=== PATIENT | male | born 1980 | race African-American/Black ===

== ENCOUNTER 2016-02-24 10:26 | Emergency (ER) | payer OTHER ==
[2016-02-24] MEDS ORDERED: ONDANSETRON 4MG/2ML VIAL (J2405) As Ordered ONE (10:57)
[2016-02-24] MEDS ORDERED: KETOROLAC 30 MG/ML VIAL (J1885) As Ordered ONE (10:57)
[2016-02-24] MEDS ORDERED: GASTROGRAFIN SOLUTION 30ML (Q9963) As Ordered ONE (10:58)
[2016-02-24] MEDS ORDERED: ISOVUE-370 76% 100ML VIAL (Q9967) As Ordered ONE (11:17)
[2016-02-24 11:21] LABS: ALBUMIN/GLOBULIN RATIO 1.18 (1.00-1.93); ALKALINE PHOSPHATASE 87 U/L (45-117); ALT/SGPT 35 U/L (12-78); AMYLASE 53 U/L (25-115); ANION GAP 10 MEQ/L (8-16); AST/SGOT 17 U/L (15-37); BILIRUBIN,DIRECT 0.2 MG/DL (0.0-0.2); BILIRUBIN,TOTAL 0.6 MG/DL (0.2-1.0); BLOOD UREA NITROGEN 17 MG/DL (7-18); CALCIUM LEVEL 8.8 MG/DL (8.5-10.1); CARBON DIOXIDE LEVEL 27 MEQ/L (21-32); CHLORIDE LEVEL 107 MEQ/L (98-107); CREATININE FOR GFR 1.04 MG/DL (0.70-1.30); GLOMERULAR FILTRATION RATE > 60.0 (>60); GLUCOSE, FASTING 90 MG/DL (70-105); POTASSIUM SERUM 3.5 MEQ/L (3.5-5.1); SODIUM LEVEL 144 MEQ/L (136-145); TOTAL PROTEIN 7.4 GM/DL (6.4-8.2)
[2016-02-24 11:27] LABS: BASO % 0.5 % (0.0-1.0); EOS # 0.1 K/mm3 (0.0-0.50); EOS % 1.9 % (0.0-3.0); LARGE UNSTAINED CELL # 0.1 K/mm3 (0.0-0.4); LARGE UNSTAINED CELL % 3.8 % (0.0-4.0); LYMPH % 54.9 % (24.0-44.0); MEAN CORPUSCULAR HEMOGLOBIN 31.5 pg (27.0-33.0); MEAN CORPUSCULAR HGB CONC 36.2 g/dl (32.0-36.5); MEAN CORPUSCULAR VOLUME 86.9 fl (80.0-96.0); MONO # 0.3 K/mm3 (0.0-0.8); MONO % 7.4 % (0.0-5.0); NEUTROPHILS # 1.2 K/mm3 (1.8-7.7); NEUTROPHILS % 31.6 % (36.0-66.0); PLATELET COUNT, AUTOMATED 161 k/mm3 (150-450); RED CELL DISTRIBUTION WIDTH 12.1 % (11.5-14.5); WHITE BLOOD COUNT 3.7 K/mm3 (4.0-10.0)
--- NOTE | 2016-02-24 13:51 | EDDOCDS ---
Physician Documentation [facility] Name: Miguel Gould Age: 35 yrs Sex: Male : 1980 Arrival Date: 02/24/2016 Time: 10:26 Bed I7 Private MD: Unknown, Family Dr Disposition: 02/24/16 13:36 Discharged to Home/Self Care. Impression: Nausea, Lower abdominal pain, unspecified - RLQ. - Condition is Stable. - Discharge Instructions: Abdominal Pain, Adult, Nausea, Adult. - Prescriptions for Bentyl 20 mg Oral Tablet - take 1 tablet by ORAL route every 6 hours As needed; 20 tablet. ZOFRAN ODT 4 mg Oral - dissolve 1 tablet by ORAL route 3-4 times daily As needed do not chew, do not swallow whole; 20 tablet. - Medication Reconciliation, Local Pharmacy Hours form. - Follow up: Emergency Department; When: As needed; Reason: Worsening of conditions. Follow up: Private Physician; When: 2 - 3 days; Reason: Wound/Symptom Recheck, Recheck today's complaints, Continuance of care. - Problem is new. - Symptoms have improved. Historical: - Allergies: PENICILLINS; - Home Meds: 1. none - PMHx: Hepatitis C; - PSHx: Cholecystectomy; - Family history: Not pertinent. - Social history: Smoking status: Patient states was never smoker of tobacco. No barriers to communication noted, The patient speaks fluent Turkmen. - : The pt / caregiver states he / she is not on anticoagulants. Home medication list is obtained from the patient. - Exposure Risk Screening:: None identified. Vital Signs: 02/23 10:28 BP 156 / 73; Pulse 86; Resp 18; Temp 96.1(O); Pulse Ox 99% on R/A; Weight 83.46 kg / elp 184 lbs (R); Height 5 ft. 10 in. (177.80 cm) (R); Pain 3/10; 13:36 BP 123 / 61; Pulse 74; Resp 16; Temp 98.3; Pulse Ox 99% on R/A; Pain 3/10; jmk 10:28 Body Mass Index 26.40 (83.46 kg, 177.80 cm) elp MDM: 10:45 NS 0.9% 1000 ml IV at bolus once ordered. dt4 10:45 Ondansetron 4 mg IVP once ordered. dt4 10:45 ketorolac 30 mg IVP once ordered. dt4 10:45 IV Saline Lock ordered. dt4 10:46 Amylase Ordered. EDMS 10:46 Basic Metabolic Profile Ordered. EDMS 10:46 CBC with Diff Ordered. EDMS 10:46 Lipase Ordered. EDMS 10:46 Liver Profile Ordered. EDMS 10:46 Urinalysis Ordered. EDMS 10:46 CRP Ordered. EDMS 10:46 Urine Culture Ordered. EDMS 10:46 CT ABD & PELVIS: IV and Oral Contrast Ordered. EDMS 10:46 NOTHING BY MOUTH+DIET ordered. EDMS 11:09 Financial registration complete. lg 11:12 Diatrizoate Meglumine & Sodium Liquid 10 ml PO once; mix in 290cc of water ordered. ead 11:12 Diatrizoate Meglumine & Sodium Liquid 10 ml PO once; mix in 290cc of water ordered. ead Administered Medications: 11:00 Drug: Ondansetron 4 mg [ondansetron HCl 2 mg/mL intravenous solution (2 mL)] Route: ead IVP; Site: left hand; 11:02 Drug: ketorolac 30 mg [ketorolac 30 mg/mL (1 mL) injection solution (1 mL)] Route: IVP; ead Site: left hand; 11:05 Drug: NS 0.9% 1000 ml Route: IV; Rate: bolus; Site: left antecubital; [facility] 11:10 Drug: Diatrizoate Meglumine & Sodium 10 ml [diatrizoate meglumine and diat.sodium 66 ead %-10 % oral solution (10 mL)] Route: PO; 11:41 Drug: Diatrizoate Meglumine & Sodium 10 ml [diatrizoate meglumine and diat.sodium 66 ead %-10 % oral solution (10 mL)] Route: PO; Signatures: Dispatcher [employer] EDMS Mitchell Angeles,RN RN Leonie Santos, Oskar Braga lg, RN RN mlb1 Edda Su RN RN Coni Pierce, MORENO PACasie dt4 MTDD
--- NOTE | 2016-02-24 13:51 | EDDOCDS ---
Nurse's Notes [facility] Name: Miguel Gould Age: 35 yrs Sex: Male : 1980 Arrival Date: 02/24/2016 Time: 10:26 Bed I7 Private MD: Unknown, Family Dr Diagnosis: Nausea;Lower abdominal pain, unspecified-RLQ Presentation: 02/23 10:32 Presenting complaint: Patient states: RLQ pain began a week ago with nausea and mlb1 diarrhea. Risk factors: the patient reports not having a history of previous torsion. Adult Sepsis Screening: The patient does not have new or worsening altered mentation. Patient's respiratory rate is less than 22. Systolic blood pressure is greater than 100. Patient has a qSOFA score of 0- Negative Sepsis Screen. Suicide/Homicide risk assessment- the patient denies having any suicidal and/or homicidal ideations and does not present with any other emotional, behavioral or mental health complaints. Status: Patient is not a health services manager or dependent. Transition of care: patient was not received from another setting of care. 10:32 Acuity: ASHISH Level 3 mlb1 10:32 Method Of Arrival: Walkin/Carried/Asstd mlb1 Triage Assessment: 13:49 Pain: Pain currently is 3 out of 10 on a pain scale. Pt Declines HIV testing. GI: jmk Abdomen is flat, non- distended Bowel sounds present X 4 quads. Historical: - Allergies: PENICILLINS; - Home Meds: 1. none - PMHx: Hepatitis C; - PSHx: Cholecystectomy; - Family history: Not pertinent. - Social history: Smoking status: Patient states was never smoker of tobacco. No barriers to communication noted, The patient speaks fluent Faroese. - : The pt / caregiver states he / she is not on anticoagulants. Home medication list is obtained from the patient. - Exposure Risk Screening:: None identified. Screenin:47 Screening information is obtained from the patient. Fall risk: No risks identified. jmk Assistance ADL's: requires no assistance with activities of daily living. Abuse/DV Screen: The patient / caregiver reports he/she is: not in a situation that causes fear, pain or injury. Nutritional screening: No deficits noted. Advance Directives: Currently, there is no health care proxy. There is no active DNR order. There is no living will. There is no Power of Hone Operator. Advance directive information has not previously been placed in an [facility] medical record. Further advance directive information is declined. home support is adequate. Assessment: 10:38 General: Appears in no apparent distress, skin warm and dry color satisfactory. Moist jmk pink oral mucosa. Indicates discomfort to right lower abdomen. Denies rebound tenderness. Bowel sounds present x 4. ambulates with brisk upright gait and readily accommodates position changes. GI: Abdomen is flat, non- distended Bowel sounds present X 4 quads. Abd is soft X 4 quads Abd is tender to palpation in right lower quadrant. 11:30 General: Appears in no apparent distress, comfortable, Behavior is appropriate for age, ead cooperative, pleasant. Neurological: No deficits noted. Respiratory: Airway is patent Respiratory effort is even, unlabored. Derm: Skin is dry, Skin is normal, Skin temperature is warm. 12:30 General: Appears in no apparent distress, comfortable, Behavior is appropriate for age, ead cooperative, pt returned from CT, awaiting results. Security officers maintain at bedside with pt.. Vital Signs: 10:28 BP 156 / 73; Pulse 86; Resp 18; Temp 96.1(O); Pulse Ox 99% on R/A; Weight 83.46 kg (R); elp Height 5 ft. 10 in. (177.80 cm) (R); Pain 3/10; 13:36 BP 123 / 61; Pulse 74; Resp 16; Temp 98.3; Pulse Ox 99% on R/A; Pain 3/10; jmk 10:28 Body Mass Index 26.40 (83.46 kg, 177.80 cm) [facility] Vitals: 10:28 Log In Time: February 24, 2016 at 10:25. [facility] ED Course: 10:28 Patient visited by Sandra Nelson PCA. elp 10:28 Unknown, Family is Private Physician. elp 10:28 Patient moved to Waiting elp 10:29 Patient visited by Sandra Nelson PCA. elp 10:31 Patient moved to I7 elp 10:32 Patient visited by Oskar Richardson RN. mlb1 10:35 Triage Initiated mlb1 10:36 Coni Byrnes PA-C is PSYCHIATRICP. dt4 10:36 Patricio Yee MD is Attending Physician. dt4 10:36 Patient visited by Coni Byrnes PA-C. dt4 10:38 Patient visited by Oskar Richardson RN. mlb1 10:50 Inserted saline lock: 20 gauge in left hand. jmk 10:56 CRP Sent. jmk 10:56 Amylase Sent. jmk 10:56 Basic Metabolic Profile Sent. jmk 10:57 CBC with Diff Sent. jmk 10:57 Lipase Sent. jmk 10:57 Liver Profile Sent. jmk 10:57 Urinalysis Sent. jmk 10:57 Urine Culture Sent. jmk 11:11 Patient visited by Edda Su,RN. ead 12:26 Patient visited by Edda Su,MAHI. ead 13:47 The patient / caregiver is instructed regarding the plan of care and ED course. jmk 13:48 Discontinued lock intact, bleeding controlled, pressure dressing applied, No jmk redness/swelling at site. No procedures done that require assistance. Administered Medications: 11:00 Drug: Ondansetron 4 mg [ondansetron HCl 2 mg/mL intravenous solution (2 mL)] Route: ead IVP; Site: left hand; 11:02 Drug: ketorolac 30 mg [ketorolac 30 mg/mL (1 mL) injection solution (1 mL)] Route: IVP; ead Site: left hand; 11:05 Drug: NS 0.9% 1000 ml Route: IV; Rate: bolus; Site: left antecubital; jmk 11:10 Drug: Diatrizoate Meglumine & Sodium 10 ml [diatrizoate meglumine and diat.sodium 66 ead %-10 % oral solution (10 mL)] Route: PO; 11:41 Drug: Diatrizoate Meglumine & Sodium 10 ml [diatrizoate meglumine and diat.sodium 66 ead %-10 % oral solution (10 mL)] Route: PO; Order Results: Lab Order: Amylase; SPEC'M 02/24/16 10:54 Test: AMYLASE; Value: 53; Range: 25-115; Units: U/L; Status: F Lab Order: Basic Metabolic Profile; SPEC'M 02/24/16 10:54 Test: GLUCOSE, FASTING; Value: 90; Range: 70-105; Units: MG/DL; Status: F Test: BLOOD UREA NITROGEN; Value: 17; Range: 7-18; Units: MG/DL; Status: F Test: CREATININE FOR GFR; Value: 1.04; Range: 0.70-1.30; Units: MG/DL; Status: F Test: GLOMERULAR FILTRATION RATE; Value: > 60.0; Range: >60; Status: F Test: SODIUM LEVEL; Value: 144; Range: 136-145; Units: MEQ/L; Status: F Test: POTASSIUM SERUM; Value: 3.5; Range: 3.5-5.1; Units: MEQ/L; Status: F Test: CHLORIDE LEVEL; Value: 107; Range: 98-107; Units: MEQ/L; Status: F Test: CARBON DIOXIDE LEVEL; Value: 27; Range: 21-32; Units: MEQ/L; Status: F Test: ANION GAP; Value: 10; Range: 8-16; Units: MEQ/L; Status: F Test: CALCIUM LEVEL; Value: 8.8; Range: 8.5-10.1; Units: MG/DL; Status: F Test Note: ; Units are mL/min/1.73 m2 Chronic Kidney Disease Staging per NKF: Stage I & II GFR >=60 Normal to Mildly Decreased Stage III GFR 30-59 Moderately Decreased Stage IV GFR 15-29 Severely Decreased Stage V GFR <15 Very Little GFR Left ESRD GFR <15 on TEACHING PASTOR Lab Order: CBC with Diff; SPEC'M 02/24/16 10:54 Test: WHITE BLOOD COUNT; Value: 3.7; Range: 4.0-10.0; Abnormal: Below low normal; Units: K/mm3; Status: F Test: RED BLOOD COUNT; Value: 4.18; Range: 4.30-6.10; Abnormal: Below low normal; Units: M/mm3; Status: F Test: HEMOGLOBIN; Value: 13.1; Range: 14.0-18.0; Abnormal: Below low normal; Units: g/dl; Status: F Test: HEMATOCRIT; Value: 36.3; Range: 42.0-52.0; Abnormal: Below low normal; Units: %; Status: F Test: MEAN CORPUSCULAR VOLUME; Value: 86.9; Range: 80.0-96.0; Units: fl; Status: F Test: MEAN CORPUSCULAR HEMOGLOBIN; Value: 31.5; Range: 27.0-33.0; Units: pg; Status: F Test: MEAN CORPUSCULAR HGB CONC; Value: 36.2; Range: 32.0-36.5; Units: g/dl; Status: F Test: RED CELL DISTRIBUTION WIDTH; Value: 12.1; Range: 11.5-14.5; Units: %; Status: F Test: PLATELET COUNT, AUTOMATED; Value: 161; Range: 150-450; Units: k/mm3; Status: F Test: NEUTROPHILS %; Value: 31.6; Range: 36.0-66.0; Abnormal: Below low normal; Units: %; Status: F Test: LYMPH %; Value: 54.9; Range: 24.0-44.0; Abnormal: Above high normal; Units: %; Status: F Test: MONO %; Value: 7.4; Range: 0.0-5.0; Abnormal: Above high normal; Units: %; Status: F Test: EOS %; Value: 1.9; Range: 0.0-3.0; Units: %; Status: F Test: BASO %; Value: 0.5; Range: 0.0-1.0; Units: %; Status: F Test: LARGE UNSTAINED CELL %; Value: 3.8; Range: 0.0-4.0; Units: %; Status: F Test: NEUTROPHILS #; Value: 1.2; Range: 1.8-7.7; Abnormal: Below low normal; Units: K/mm3; Status: F Test: LYMPH #; Value: 2.0; Range: 1.5-4.5; Units: K/mm3; Status: F Test: MONO #; Value: 0.3; Range: 0.0-0.8; Units: K/mm3; Status: F Test: EOS #; Value: 0.1; Range: 0.0-0.50; Units: K/mm3; Status: F Test: BASO #; Value: 0.0; Range: 0.0-0.2; Units: K/mm3; Status: F Test: LARGE UNSTAINED CELL #; Value: 0.1; Range: 0.0-0.4; Units: K/mm3; Status: F Lab Order: Lipase; SPEC'M 02/24/16 10:54 Test: LIPASE; Value: 140; Range: 73-393; Units: U/L; Status: F Lab Order: Liver Profile; [facility] 02/24/16 10:54 Test: AST/SGOT; Value: 17; Range: 15-37; Units: U/L; Status: F Test: ALT/SGPT; Value: 35; Range: 12-78; Units: U/L; Status: F Test: ALKALINE PHOSPHATASE; Value: 87; Range: 45-117; Units: U/L; Status: F Test: BILIRUBIN,TOTAL; Value: 0.6; Range: 0.2-1.0; Units: MG/DL; Status: F Test: BILIRUBIN,DIRECT; Value: 0.2; Range: 0.0-0.2; Units: MG/DL; Status: F Test: TOTAL PROTEIN; Value: 7.4; Range: 6.4-8.2; Units: GM/DL; Status: F Test: ALBUMIN; Value: 4.0; Range: 3.2-5.2; Units: GM/DL; Status: F Test: ALBUMIN/GLOBULIN RATIO; Value: 1.18; Range: 1.00-1.93; Status: F Lab Order: Urinalysis; [facility] 02/24/16 10:54 Test: APPEARANCE, URINE; Value: CLEAR; Range: CLEAR; Status: F Test: COLOR, URINE; Value: YELLOW; Range: YELLOW; Status: F Test: PH,URINE; Value: 5.0; Range: 5.0-9.0; Units: UNITS; Status: F Test: SPECIFIC GRAVITY URINE AUTO; Value: 1.020; Range: 1.002-1.035; Status: F Test: PROTEIN, URINE AUTO; Value: NEGATIVE; Range: NEGATIVE; Units: mg/dL; Status: F Test: GLUCOSE, URINE (UA) AUTO; Value: NEGATIVE; Range: NEGATIVE; Units: mg/dL; Status: F Test: KETONE, URINE AUTO; Value: NEGATIVE; Range: NEGATIVE; Units: mg/dL; Status: F Test: UROBILINOGEN, URINE AUTO; Value: 0.2; Range: 0.0-2.0; Units: mg/dL; Status: F Test: BILIRUBIN, URINE AUTO; Value: NEGATIVE; Range: NEGATIVE; Status: F Test: NITRITE, URINE AUTO; Value: NEGATIVE; Range: NEGATIVE; Status: F Test: LEUKOCYTE ESTERASE, URINE AUTO; Value: NEGATIVE; Range: NEGATIVE; Status: F Test: BLOOD, URINE BLOOD; Value: NEGATIVE; Range: NEGATIVE; Status: F Test: WBC, URINE AUTO; Value: 2; Range: 0-3; Units: /HPF; Status: F Test: RBC, URINE AUTO; Value: 1; Range: 0-3; Units: /HPF; Status: F Test: BACTERIA, URINE AUTO; Value: NEGATIVE; Range: NEGATIVE; Status: F Test: SQUAMOUS EPITHELIAL CELL UR AU; Value: 0; Range: 0-6; Units: /HPF; Status: F Test: MUCUS, URINE; Value: SMALL; Range: NEGATIVE; Status: F Test: HYALINE CAST, URINE AUTO; Value: 0; Range: 0-1; Units: /LPF; Status: F Lab Order: CRP; SPEC'M 02/24/16 10:54 Test: C REACTIVE PROTEIN QUANTITATIV; Value: < 0.30; Range: 0.00-0.30; Units: MG/DL; Status: F Outcome: 13:36 Discharge ordered by Provider. dt4 13:48 Discharge Assessment: Patient awake, alert and oriented x 3. No cognitive and/or jmk functional deficits noted. Patient verbalized understanding of disposition instructions. patient administered narcotics - no. The following High Risk Discharge criteria are identified: None. Discharged to home ambulatory. Condition: good. Discharge instructions given to patient, Instructed on discharge instructions, follow up and referral plans. medication usage, Demonstrated understanding of instructions, medications, Pt was receptive of discharge instructions/ teaching. Prescriptions given X 2. CT Study completed. Property :Personal belongings accompany Pt. 13:50 Patient left the ED. [facility] Signatures: Mitchell AngelesRN RN Oskar Jara RN RN Sandra Sigala, Edda Corrigan RN RN ead Tschudi, Diane, PA-Yoshi PA-C dt4 MTDD
--- NOTE | 2016-02-24 13:58 | REP ---
CT ABDOMEN AND PELVIS WITH IV AND ORAL CONTRAST: 02/24/2016 INDICATION: Appendicitis. COMPARISON: None. TECHNIQUE: After drinking two cups of oral contrast, each containing 10 mL Gastrografin in 290 mL water, 100 mL Isovue 370 mg/mL IV was injected intravenously. FINDINGS: Minimal dependent atelectasis is present in the lung bases bilaterally. The liver is without focal lesion. Subtle focal area of fatty infiltration is seen in the medial segment left lobe of the liver adjacent to the ligamentum teres. There is a small calcified granuloma within the posterior segment right lob of the liver. The spleen, pancreas, are normal. There has been a prior cholecystectomy. There is no biliary dilatation. The adrenal glands and kidneys are normal without hydronephrosis or obstructing ureteral calculi bilaterally. The stomach and small bowel are within normal limits. Mild mural thickening seen in the terminal ileum only. The terminal ileum is normal. The appendix is without inflammation. The abdominal aorta is of normal course and caliber. The bladder is contracted. The prostate is not enlarged. There is moderate generalized diffuse retained colonic stools. Small umbilical hernia of 19 mm transverse dimension noted containing omental fat only. There is no free air or ascites. IMPRESSION: 1. Appendix is visualized without inflammation or evidence of appendicitis. 2. Prior cholecystectomy. 3. 19 mm umbilical hernia containing omental fat only. 4. Moderate diffuse retained colonic stool. 5. Mild mural thickening is seen is seen in the terminal ileum only, a nonspecific finding yet can be seen with inflammatory bowel disease or underdistention. MTDD
--- NOTE | 2016-02-26 14:51 | EDDOCDS ---
Physician Documentation [facility] Name: Miguel Gould Age: 35 yrs Sex: Male : 1980 Arrival Date: 02/24/2016 Time: 10:26 Bed I7 Private MD: Unknown, Family Dr Disposition: 02/24/16 13:36 Discharged to Home/Self Care. Impression: Nausea, Lower abdominal pain, unspecified - RLQ. - Condition is Stable. - Discharge Instructions: Abdominal Pain, Adult, Nausea, Adult. - Prescriptions for Bentyl 20 mg Oral Tablet - take 1 tablet by ORAL route every 6 hours As needed; 20 tablet. ZOFRAN ODT 4 mg Oral - dissolve 1 tablet by ORAL route 3-4 times daily As needed do not chew, do not swallow whole; 20 tablet. - Medication Reconciliation, Local Pharmacy Hours form. - Follow up: Emergency Department; When: As needed; Reason: Worsening of conditions. Follow up: Private Physician; When: 2 - 3 days; Reason: Wound/Symptom Recheck, Recheck today's complaints, Continuance of care. - Problem is new. - Symptoms have improved. Historical: - Allergies: PENICILLINS; - Home Meds: 1. none - PMHx: Hepatitis C; - PSHx: Cholecystectomy; - Family history: Not pertinent. - Social history: Smoking status: Patient states was never smoker of tobacco. No barriers to communication noted, The patient speaks fluent Lao. - : The pt / caregiver states he / she is not on anticoagulants. Home medication list is obtained from the patient. - Exposure Risk Screening:: None identified. Vital Signs: 02/23 10:28 BP 156 / 73; Pulse 86; Resp 18; Temp 96.1(O); Pulse Ox 99% on R/A; Weight 83.46 kg / elp 184 lbs (R); Height 5 ft. 10 in. (177.80 cm) (R); Pain 3/10; 13:36 BP 123 / 61; Pulse 74; Resp 16; Temp 98.3; Pulse Ox 99% on R/A; Pain 3/10; jmk 10:28 Body Mass Index 26.40 (83.46 kg, 177.80 cm) elp MDM: 10:45 NS 0.9% 1000 ml IV at bolus once ordered. dt4 10:45 Ondansetron 4 mg IVP once ordered. dt4 10:45 ketorolac 30 mg IVP once ordered. dt4 10:45 IV Saline Lock ordered. dt4 10:46 Amylase Ordered. EDMS 10:46 Basic Metabolic Profile Ordered. EDMS 10:46 CBC with Diff Ordered. EDMS 10:46 Lipase Ordered. EDMS 10:46 Liver Profile Ordered. EDMS 10:46 Urinalysis Ordered. EDMS 10:46 CRP Ordered. EDMS 10:46 Urine Culture Ordered. EDMS 10:46 CT ABD & PELVIS: IV and Oral Contrast Ordered. EDMS 10:46 NOTHING BY MOUTH+DIET ordered. EDMS 11:09 Financial registration complete. lg 11:12 Diatrizoate Meglumine & Sodium Liquid 10 ml PO once; mix in 290cc of water ordered. ead 11:12 Diatrizoate Meglumine & Sodium Liquid 10 ml PO once; mix in 290cc of water ordered. ead 14:16 [facility] Payment Agreement was scanned into [employer] and attached to record. lg 15:15 T-Sheet-- Draft Copy was scanned into [employer] and attached to record. gb 15:15 Radiology Report was scanned into [employer] and attached to record. gb Administered Medications: 11:00 Drug: Ondansetron 4 mg [ondansetron HCl 2 mg/mL intravenous solution (2 mL)] Route: ead IVP; Site: left hand; 11:02 Drug: ketorolac 30 mg [ketorolac 30 mg/mL (1 mL) injection solution (1 mL)] Route: IVP; ead Site: left hand; 11:05 Drug: NS 0.9% 1000 ml Route: IV; Rate: bolus; Site: left antecubital; jmk 11:10 Drug: Diatrizoate Meglumine & Sodium 10 ml [diatrizoate meglumine and diat.sodium 66 ead %-10 % oral solution (10 mL)] Route: PO; 11:41 Drug: Diatrizoate Meglumine & Sodium 10 ml [diatrizoate meglumine and diat.sodium 66 ead %-10 % oral solution (10 mL)] Route: PO; Signatures: Dispatcher [employer] EDMS Mitchell Angeles,RN RN Valarie Mast, Leonie Godoy Reg Reg lg Oskar Richardson RN RN mlb1 Edda SuRN RN ead Coni Byrnes, MORENO MAYER dt4 The chart was reviewed and I authenticate all verbal orders and agree with the evaluation and treatment provided.Attachments: 14:16 [facility] Payment Agreement lg 15:15 T-Sheet-- Draft Copy gb Chart Complete MTDD
--- NOTE | 2016-02-26 14:51 | EDDOCDS ---
Physician Documentation [facility] Name: Miguel Gould Age: 35 yrs Sex: Male : 1980 Arrival Date: 02/24/2016 Time: 10:26 Bed I7 Private MD: Unknown, Family Dr Disposition: 02/24/16 13:36 Discharged to Home/Self Care. Impression: Nausea, Lower abdominal pain, unspecified - RLQ. - Condition is Stable. - Discharge Instructions: Abdominal Pain, Adult, Nausea, Adult. - Prescriptions for Bentyl 20 mg Oral Tablet - take 1 tablet by ORAL route every 6 hours As needed; 20 tablet. ZOFRAN ODT 4 mg Oral - dissolve 1 tablet by ORAL route 3-4 times daily As needed do not chew, do not swallow whole; 20 tablet. - Medication Reconciliation, Local Pharmacy Hours form. - Follow up: Emergency Department; When: As needed; Reason: Worsening of conditions. Follow up: Private Physician; When: 2 - 3 days; Reason: Wound/Symptom Recheck, Recheck today's complaints, Continuance of care. - Problem is new. - Symptoms have improved. Historical: - Allergies: PENICILLINS; - Home Meds: 1. none - PMHx: Hepatitis C; - PSHx: Cholecystectomy; - Family history: Not pertinent. - Social history: Smoking status: Patient states was never smoker of tobacco. No barriers to communication noted, The patient speaks fluent Syriac. - : The pt / caregiver states he / she is not on anticoagulants. Home medication list is obtained from the patient. - Exposure Risk Screening:: None identified. Vital Signs: 02/23 10:28 BP 156 / 73; Pulse 86; Resp 18; Temp 96.1(O); Pulse Ox 99% on R/A; Weight 83.46 kg / elp 184 lbs (R); Height 5 ft. 10 in. (177.80 cm) (R); Pain 3/10; 13:36 BP 123 / 61; Pulse 74; Resp 16; Temp 98.3; Pulse Ox 99% on R/A; Pain 3/10; jmk 10:28 Body Mass Index 26.40 (83.46 kg, 177.80 cm) elp MDM: 10:45 NS 0.9% 1000 ml IV at bolus once ordered. dt4 10:45 Ondansetron 4 mg IVP once ordered. dt4 10:45 ketorolac 30 mg IVP once ordered. dt4 10:45 IV Saline Lock ordered. dt4 10:46 Amylase Ordered. EDMS 10:46 Basic Metabolic Profile Ordered. EDMS 10:46 CBC with Diff Ordered. EDMS 10:46 Lipase Ordered. EDMS 10:46 Liver Profile Ordered. EDMS 10:46 Urinalysis Ordered. EDMS 10:46 CRP Ordered. EDMS 10:46 Urine Culture Ordered. EDMS 10:46 CT ABD & PELVIS: IV and Oral Contrast Ordered. EDMS 10:46 NOTHING BY MOUTH+DIET ordered. EDMS 11:09 Financial registration complete. lg 11:12 Diatrizoate Meglumine & Sodium Liquid 10 ml PO once; mix in 290cc of water ordered. ead 11:12 Diatrizoate Meglumine & Sodium Liquid 10 ml PO once; mix in 290cc of water ordered. ead 14:16 [facility] Payment Agreement was scanned into [employer] and attached to record. lg 15:15 T-Sheet-- Draft Copy was scanned into [employer] and attached to record. gb 15:15 Radiology Report was scanned into [employer] and attached to record. gb Administered Medications: 11:00 Drug: Ondansetron 4 mg [ondansetron HCl 2 mg/mL intravenous solution (2 mL)] Route: ead IVP; Site: left hand; 11:02 Drug: ketorolac 30 mg [ketorolac 30 mg/mL (1 mL) injection solution (1 mL)] Route: IVP; ead Site: left hand; 11:05 Drug: NS 0.9% 1000 ml Route: IV; Rate: bolus; Site: left antecubital; jmk 11:10 Drug: Diatrizoate Meglumine & Sodium 10 ml [diatrizoate meglumine and diat.sodium 66 ead %-10 % oral solution (10 mL)] Route: PO; 11:41 Drug: Diatrizoate Meglumine & Sodium 10 ml [diatrizoate meglumine and diat.sodium 66 ead %-10 % oral solution (10 mL)] Route: PO; Signatures: Dispatcher [employer] EDMS Mitchell Angeles,RN RN Valarie Mast, Leonie Godoy Reg Reg lg Oskar Richardson RN RN mlb1 Edda SuRN RN ead Coni Byrnes, MORENO MAYER dt4 The chart was reviewed and I authenticate all verbal orders and agree with the evaluation and treatment provided.Attachments: 14:16 [facility] Payment Agreement lg 15:15 T-Sheet-- Draft Copy gb Chart Complete MTDD
--- NOTE | 2016-02-26 14:51 | EDDOCDS ---
Nurse's Notes [facility] Name: Miguel Gould Age: 35 yrs Sex: Male : 1980 Arrival Date: 02/24/2016 Time: 10:26 Bed I7 Private MD: Unknown, Family Dr Diagnosis: Nausea;Lower abdominal pain, unspecified-RLQ Presentation: 02/23 10:32 Presenting complaint: Patient states: RLQ pain began a week ago with nausea and mlb1 diarrhea. Risk factors: the patient reports not having a history of previous torsion. Adult Sepsis Screening: The patient does not have new or worsening altered mentation. Patient's respiratory rate is less than 22. Systolic blood pressure is greater than 100. Patient has a qSOFA score of 0- Negative Sepsis Screen. Suicide/Homicide risk assessment- the patient denies having any suicidal and/or homicidal ideations and does not present with any other emotional, behavioral or mental health complaints. Status: Patient is not a sales service coordinator or dependent. Transition of care: patient was not received from another setting of care. 10:32 Acuity: ASHISH Level 3 mlb1 10:32 Method Of Arrival: Walkin/Carried/Asstd mlb1 Triage Assessment: 13:49 Pain: Pain currently is 3 out of 10 on a pain scale. Pt Declines HIV testing. GI: jmk Abdomen is flat, non- distended Bowel sounds present X 4 quads. Historical: - Allergies: PENICILLINS; - Home Meds: 1. none - PMHx: Hepatitis C; - PSHx: Cholecystectomy; - Family history: Not pertinent. - Social history: Smoking status: Patient states was never smoker of tobacco. No barriers to communication noted, The patient speaks fluent Mongolian. - : The pt / caregiver states he / she is not on anticoagulants. Home medication list is obtained from the patient. - Exposure Risk Screening:: None identified. Screenin:47 Screening information is obtained from the patient. Fall risk: No risks identified. jmk Assistance ADL's: requires no assistance with activities of daily living. Abuse/DV Screen: The patient / caregiver reports he/she is: not in a situation that causes fear, pain or injury. Nutritional screening: No deficits noted. Advance Directives: Currently, there is no health care proxy. There is no active DNR order. There is no living will. There is no Power of Animal Caretaker Supervisor. Advance directive information has not previously been placed in an [facility] medical record. Further advance directive information is declined. home support is adequate. Assessment: 10:38 General: Appears in no apparent distress, skin warm and dry color satisfactory. Moist jmk pink oral mucosa. Indicates discomfort to right lower abdomen. Denies rebound tenderness. Bowel sounds present x 4. ambulates with brisk upright gait and readily accommodates position changes. GI: Abdomen is flat, non- distended Bowel sounds present X 4 quads. Abd is soft X 4 quads Abd is tender to palpation in right lower quadrant. 11:30 General: Appears in no apparent distress, comfortable, Behavior is appropriate for age, ead cooperative, pleasant. Neurological: No deficits noted. Respiratory: Airway is patent Respiratory effort is even, unlabored. Derm: Skin is dry, Skin is normal, Skin temperature is warm. 12:30 General: Appears in no apparent distress, comfortable, Behavior is appropriate for age, ead cooperative, pt returned from CT, awaiting results. Security officers maintain at bedside with pt.. Vital Signs: 10:28 BP 156 / 73; Pulse 86; Resp 18; Temp 96.1(O); Pulse Ox 99% on R/A; Weight 83.46 kg (R); elp Height 5 ft. 10 in. (177.80 cm) (R); Pain 3/10; 13:36 BP 123 / 61; Pulse 74; Resp 16; Temp 98.3; Pulse Ox 99% on R/A; Pain 3/10; jmk 10:28 Body Mass Index 26.40 (83.46 kg, 177.80 cm) [facility] Vitals: 10:28 Log In Time: February 24, 2016 at 10:25. [facility] ED Course: 10:28 Patient visited by Sandra Nelson PCA. elp 10:28 Unknown, Family is Private Physician. elp 10:28 Patient moved to Waiting elp 10:29 Patient visited by Sandra Nelson PCA. elp 10:31 Patient moved to I7 elp 10:32 Patient visited by Oskar Richardson RN. mlb1 10:35 Triage Initiated mlb1 10:36 Con[facility] Byrnes [facility]. dt4 10:36 Patricio Yee MD is Attending Physician. dt4 10:36 Patient visited by Coni Byrnes PA-C. dt4 10:38 Patient visited by Oskar Richardson, MAHI. mlb1 10:50 Inserted saline lock: 20 gauge in left hand. jmk 10:56 CRP Sent. jmk 10:56 Amylase Sent. jmk 10:56 Basic Metabolic Profile Sent. jmk 10:57 CBC with Diff Sent. jmk 10:57 Lipase Sent. jmk 10:57 Liver Profile Sent. jmk 10:57 Urinalysis Sent. jmk 10:57 Urine Culture Sent. jmk 11:11 Patient visited by Edda Su,RN. ead 12:26 Patient visited by Edda Su,MAHI. ead 13:47 The patient / caregiver is instructed regarding the plan of care and ED course. jmk 13:48 Discontinued lock intact, bleeding controlled, pressure dressing applied, No jmk redness/swelling at site. No procedures done that require assistance. 14:06 CT ABD & PELVIS: IV and Oral Contrast Returned. EDMS 14:16 [facility] Payment Agreement was scanned into [email or web address] and attached to record. lg 15:15 T-Sheet-- Draft Copy was scanned into [email or web address] and attached to record. gb 15:15 Radiology Report was scanned into [email or web address] and attached to record. gb Administered Medications: 11:00 Drug: Ondansetron 4 mg [ondansetron HCl 2 mg/mL intravenous solution (2 mL)] Route: ead IVP; Site: left hand; 11:02 Drug: ketorolac 30 mg [ketorolac 30 mg/mL (1 mL) injection solution (1 mL)] Route: IVP; ead Site: left hand; 11:05 Drug: NS 0.9% 1000 ml Route: IV; Rate: bolus; Site: left antecubital; jmk 11:10 Drug: Diatrizoate Meglumine & Sodium 10 ml [diatrizoate meglumine and diat.sodium 66 ead %-10 % oral solution (10 mL)] Route: PO; 11:41 Drug: Diatrizoate Meglumine & Sodium 10 ml [diatrizoate meglumine and diat.sodium 66 ead %-10 % oral solution (10 mL)] Route: PO; Order Results: Lab Order: Amylase; SPEC'M 02/24/16 10:54 Test: AMYLASE; Value: 53; Range: 25-115; Units: U/L; Status: F Lab Order: Basic Metabolic Profile; SPEC02/24/16 10:54 Test: GLUCOSE, FASTING; Value: 90; Range: 70-105; Units: MG/DL; Status: F Test: BLOOD UREA NITROGEN; Value: 17; Range: 7-18; Units: MG/DL; Status: F Test: CREATININE FOR GFR; Value: 1.04; Range: 0.70-1.30; Units: MG/DL; Status: F Test: GLOMERULAR FILTRATION RATE; Value: > 60.0; Range: >60; Status: F Test: SODIUM LEVEL; Value: 144; Range: 136-145; Units: MEQ/L; Status: F Test: POTASSIUM SERUM; Value: 3.5; Range: 3.5-5.1; Units: MEQ/L; Status: F Test: CHLORIDE LEVEL; Value: 107; Range: 98-107; Units: MEQ/L; Status: F Test: CARBON DIOXIDE LEVEL; Value: 27; Range: 21-32; Units: MEQ/L; Status: F Test: ANION GAP; Value: 10; Range: 8-16; Units: MEQ/L; Status: F Test: CALCIUM LEVEL; Value: 8.8; Range: 8.5-10.1; Units: MG/DL; Status: F Test Note: ; Units are mL/min/1.73 m2 Chronic Kidney Disease Staging per NKF: Stage I & II GFR >=60 Normal to Mildly Decreased Stage III GFR 30-59 Moderately Decreased Stage IV GFR 15-29 Severely Decreased Stage V GFR <15 Very Little GFR Left ESRD GFR <15 on [employer] Lab Order: CBC with Diff; SPEC'02/24/16 10:54 Test: WHITE BLOOD COUNT; Value: 3.7; Range: 4.0-10.0; Abnormal: Below low normal; Units: K/mm3; Status: F Test: RED BLOOD COUNT; Value: 4.18; Range: 4.30-6.10; Abnormal: Below low normal; Units: M/mm3; Status: F Test: HEMOGLOBIN; Value: 13.1; Range: 14.0-18.0; Abnormal: Below low normal; Units: g/dl; Status: F Test: HEMATOCRIT; Value: 36.3; Range: 42.0-52.0; Abnormal: Below low normal; Units: %; Status: F Test: MEAN CORPUSCULAR VOLUME; Value: 86.9; Range: 80.0-96.0; Units: fl; Status: F Test: MEAN CORPUSCULAR HEMOGLOBIN; Value: 31.5; Range: 27.0-33.0; Units: pg; Status: F Test: MEAN CORPUSCULAR HGB CONC; Value: 36.2; Range: 32.0-36.5; Units: g/dl; Status: F Test: RED CELL DISTRIBUTION WIDTH; Value: 12.1; Range: 11.5-14.5; Units: %; Status: F Test: PLATELET COUNT, AUTOMATED; Value: 161; Range: 150-450; Units: k/mm3; Status: F Test: NEUTROPHILS %; Value: 31.6; Range: 36.0-66.0; Abnormal: Below low normal; Units: %; Status: F Test: LYMPH %; Value: 54.9; Range: 24.0-44.0; Abnormal: Above high normal; Units: %; Status: F Test: MONO %; Value: 7.4; Range: 0.0-5.0; Abnormal: Above high normal; Units: %; Status: F Test: EOS %; Value: 1.9; Range: 0.0-3.0; Units: %; Status: F Test: BASO %; Value: 0.5; Range: 0.0-1.0; Units: %; Status: F Test: LARGE UNSTAINED CELL %; Value: 3.8; Range: 0.0-4.0; Units: %; Status: F Test: NEUTROPHILS #; Value: 1.2; Range: 1.8-7.7; Abnormal: Below low normal; Units: K/mm3; Status: F Test: LYMPH #; Value: 2.0; Range: 1.5-4.5; Units: K/mm3; Status: F Test: MONO #; Value: 0.3; Range: 0.0-0.8; Units: K/mm3; Status: F Test: EOS #; Value: 0.1; Range: 0.0-0.50; Units: K/mm3; Status: F Test: BASO #; Value: 0.0; Range: 0.0-0.2; Units: K/mm3; Status: F Test: LARGE UNSTAINED CELL #; Value: 0.1; Range: 0.0-0.4; Units: K/mm3; Status: F Lab Order: Lipase; [facility] 02/24/16 10:54 Test: LIPASE; Value: 140; Range: 73-393; Units: U/L; Status: F Lab Order: Liver Profile; [facility] 02/24/16 10:54 Test: AST/SGOT; Value: 17; Range: 15-37; Units: U/L; Status: F Test: ALT/SGPT; Value: 35; Range: 12-78; Units: U/L; Status: F Test: ALKALINE PHOSPHATASE; Value: 87; Range: 45-117; Units: U/L; Status: F Test: BILIRUBIN,TOTAL; Value: 0.6; Range: 0.2-1.0; Units: MG/DL; Status: F Test: BILIRUBIN,DIRECT; Value: 0.2; Range: 0.0-0.2; Units: MG/DL; Status: F Test: TOTAL PROTEIN; Value: 7.4; Range: 6.4-8.2; Units: GM/DL; Status: F Test: ALBUMIN; Value: 4.0; Range: 3.2-5.2; Units: GM/DL; Status: F Test: ALBUMIN/GLOBULIN RATIO; Value: 1.18; Range: 1.00-1.93; Status: F Lab Order: Urinalysis; [facility] 02/24/16 10:54 Test: APPEARANCE, URINE; Value: CLEAR; Range: CLEAR; Status: F Test: COLOR, URINE; Value: YELLOW; Range: YELLOW; Status: F Test: PH,URINE; Value: 5.0; Range: 5.0-9.0; Units: UNITS; Status: F Test: SPECIFIC GRAVITY URINE AUTO; Value: 1.020; Range: 1.002-1.035; Status: F Test: PROTEIN, URINE AUTO; Value: NEGATIVE; Range: NEGATIVE; Units: mg/dL; Status: F Test: GLUCOSE, URINE (UA) AUTO; Value: NEGATIVE; Range: NEGATIVE; Units: mg/dL; Status: F Test: KETONE, URINE AUTO; Value: NEGATIVE; Range: NEGATIVE; Units: mg/dL; Status: F Test: UROBILINOGEN, URINE AUTO; Value: 0.2; Range: 0.0-2.0; Units: mg/dL; Status: F Test: BILIRUBIN, URINE AUTO; Value: NEGATIVE; Range: NEGATIVE; Status: F Test: NITRITE, URINE AUTO; Value: NEGATIVE; Range: NEGATIVE; Status: F Test: LEUKOCYTE ESTERASE, URINE AUTO; Value: NEGATIVE; Range: NEGATIVE; Status: F Test: BLOOD, URINE BLOOD; Value: NEGATIVE; Range: NEGATIVE; Status: F Test: WBC, URINE AUTO; Value: 2; Range: 0-3; Units: /HPF; Status: F Test: RBC, URINE AUTO; Value: 1; Range: 0-3; Units: /HPF; Status: F Test: BACTERIA, URINE AUTO; Value: NEGATIVE; Range: NEGATIVE; Status: F Test: SQUAMOUS EPITHELIAL CELL UR AU; Value: 0; Range: 0-6; Units: /HPF; Status: F Test: MUCUS, URINE; Value: SMALL; Range: NEGATIVE; Status: F Test: HYALINE CAST, URINE AUTO; Value: 0; Range: 0-1; Units: /LPF; Status: F Lab Order: Urine Culture; SPEC'M 02/24/16 10:54 Test: URINE CULTURE; Value: URINE CULTURE RESULT NO GROWTH; Status: F Lab Order: CRP; SPEC'M 02/24/16 10:54 Test: C REACTIVE PROTEIN QUANTITATIV; Value: < 0.30; Range: 0.00-0.30; Units: MG/DL; Status: F Radiology Order: CT ABD & PELVIS: IV and Oral Contrast Test: CT ABD & PELVIS: IV and Oral Contrast REASON FOR EXAMINATION: Appendicitis; ; CT ABDOMEN AND PELVIS WITH IV AND ORAL CONTRAST: 02/24/2016; ; INDICATION: Appendicitis.; ; COMPARISON: None.; ; TECHNIQUE: After drinking two cups of oral contrast, each containing 10 mL; Gastrografin in 290 mL water, 100 mL Isovue 370 mg/mL IV was injected; intravenously.; ; FINDINGS: Minimal dependent atelectasis is present in the lung bases; bilaterally.; The liver is without focal lesion. Subtle focal area of fatty infiltration is; seen in the medial segment left lobe of the liver adjacent to the ligamentum; teres. There is a small calcified granuloma within the posterior segment right; lob of the liver. The spleen, pancreas, are normal. There has been a prior; cholecystectomy. There is no biliary dilatation. The adrenal glands and kidneys; are normal without hydronephrosis or obstructing ureteral calculi bilaterally.; ; The stomach and small bowel are within normal limits. Mild mural thickening seen; in the terminal ileum only. The terminal ileum is normal. The appendix is; without inflammation. The abdominal aorta is of normal; course and caliber.; ; The bladder is contracted. The prostate is not enlarged. There is moderate; generalized diffuse retained colonic stools.; ; Small umbilical hernia of 19 mm transverse dimension noted containing omental; fat; only. There is no free air or ascites.; ; IMPRESSION:; 1. Appendix is visualized without inflammation or evidence of appendicitis.; 2. Prior cholecystectomy.; 3. 19 mm umbilical hernia containing omental fat only.; 4. Moderate diffuse retained colonic stool.; 5. Mild mural thickening is seen is seen in the terminal ileum only, a; nonspecific; finding yet can be seen with inflammatory bowel disease or underdistention.; ; ; ; MTDD Outcome: 13:36 Discharge ordered by Provider. dt4 13:48 Discharge Assessment: Patient awake, alert and oriented x 3. No cognitive and/or jmk functional deficits noted. Patient verbalized understanding of disposition instructions. patient administered narcotics - no. The following High Risk Discharge criteria are identified: None. Discharged to home ambulatory. Condition: good. Discharge instructions given to patient, Instructed on discharge instructions, follow up and referral plans. medication usage, Demonstrated understanding of instructions, medications, Pt was receptive of discharge instructions/ teaching. Prescriptions given X 2. CT Study completed. Property :Personal belongings accompany Pt. 13:50 Patient left the ED. katia Signatures: Dispatcher [employer] EDMS Mitchell Angeles,RN RN Valarie Mast, Reg Reg gb Leonie Dyer, Reg Reg lg Oskar Richardson RN RN mlb1 Sandra Nelson, SERGEANT OF OFFICERS SERGEANT OF OFFICERS Edda Tobar,RN RN Coni Pierce, PA-C PA-C dt4 Chart Complete MTDD
== END 2016-02-24 13:50 | disposition home or self-care (01) ==
LOC: M ED 10:26
DX: R10.31 Right lower quadrant pain (principal); R11.0 Nausea; R19.7 Diarrhea, unspecified; B19.20 Unspecified viral hepatitis C without hepatic coma; Z88.0 Allergy status to penicillin
CPT/HCPCS: 74177; 80048; 80076; 81001; 82150; 83690; 85025; 86140; 87086; 96374; 96375; 99284; J1885; J2405; Q9963; Q9967